=== PATIENT | male | born 1935 | race Caucasian/White ===

== ENCOUNTER 2024-02-29 12:35 | Emergency (ER) | payer MEDICARE, OTHER, SELFPAY ==
[2024-02-29 12:44] VITALS: BMI 25.7
[2024-02-29 12:45] VITALS: BP 129/80
[2024-02-29 12:46] VITALS: BP 129/80
[2024-02-29 12:58] LABS: % Basophils 0.6 % (0-2); % Eosinophils 4.3 % (0-6); % Immature Granulocytes 0.3 % (0-0.5); % Lymphocytes 15.1 % (20.5-51.1); % Monocytes 9.5 % (1.7-9.3); % Neutrophils 70.2 % (42.2-75.2); Absolute Basophils 0.1 10^3/uL (0-0.2); Absolute Eosinophils 0.4 10^3/uL (0-0.7); Absolute Lymphocytes 1.5 10^3/uL (1.2-3.4); Absolute Monocytes 0.9 10^3/uL (0.1-0.6); Absolute Neutrophils 6.8 10^3/uL (1.4-6.5); Hematocrit 40.6 % (39.0-52.0); Mean Corp Hgb Conc. 34.5 g/dL (33.0-37.0); Mean Corpuscular Hgb 32.6 pg (27.0-31.0); Mean Corpuscular Volume 94.6 fL (80.0-94.0); Mean Platelet Volume 9.6 fL (7.4-10.4); Nucleated Red Blood Cells % 0 % (-); Platelet Count 142 10^3/uL (130-400); Red Blood Cell Count 4.29 10^6/uL (4.70-6.10); Red Cell Dist. Width 13.5 % (11.5-14.5); White Blood Cell Count 9.8 10^3/uL (4.8-10.8)
[2024-02-29 13:00] VITALS: BP 120/74
[2024-02-29 13:07] LABS: ALT (SGPT) 21 U/L (0-50); AST (SGOT) 28 U/L (17-59); Albumin 3.8 g/dl (3.5-5.0); Alkaline Phosphatase 66 U/L (38-126); Blood Urea Nitrogen 18 mg/dl (9-20); Calcium 8.5 mg/dl (8.4-10.2); Carbon Dioxide 24 mmol/L (22-30); Chloride 106 mmol/L (98-107); Estimated Creatinine Clearance 67 ml/min; Glucose 131 mg/dl (70-99); Potassium 3.8 mmol/L (3.5-5.1); Sodium 138 mmol/L (135-145); Total Protein 6.5 g/dl (6.3-8.2); eGFR > 60.00
[2024-02-29 13:18] LABS: Troponin I < 0.012 ng/ml
--- NOTE | 2024-02-29 13:53 | ED.GENMED ---
History of Present Illness
General
Chief Complaint: Fainting/Passed Out
Time Seen by Provider: 02/29/24 13:34
History of Present Illness
History of Present Illness:
89-year-old male presents for evaluation after syncopal episode he sustained today. He had been n.p.o. all day for a carpal tunnel surgery that was done late this morning. He had a long drive in a car that did not have air conditioning on the way
home. He was in the car for like 40 minutes. Upon pulling into the driveway his states that he slumped over and passed out. He wet his pants during this episode. He woke up quickly and started talking. He was sweaty during this episode.
No preceding chest pain. No shortness of breath. He thinks it was due to being n.p.o. and having no air conditioning in the heat. He currently feels better after IV fluids. NO Complaints to offer currently
Phy Exam
Physical Exam
Physical Exam:
Physical Exam
General: no apparent distress, not acutely ill
Neck: supple. no meningeal signs. normal psoterior pharynx
Heart: s1/s2 regular rate and rhythm, no murmur. equal radial pulses.
Lungs: no acute respiratory distress. clear bilaterally
Abdomen: normal bowel sounds. not tender. no CVAT
Neuro: alert and oriented. no focal neurological deficits
Skin: no rash
Psychiatric: well kept. interactive and cooperative
Extremities: no edema. no calf tenderness. negative homans. good distal pulses
Course
Orders/Labs/Results
Orders:
Orders
02/29/24 12:43
Electrocardiogram (*1) Urgent
Reason for Study: Syncope
EKG- Treatment ONCE
02/29/24 12:46
Complete Blood Count/With Diff Urgent
Comprehensive Metabolic Panel Urgent
Troponin I Urgent
Abnormal Lab Results
02/29/24
12:46
RBC 4.29 L 10^6/uL
(4.70-6.10)
MCV 94.6 H fL
(80.0-94.0)
MCH 32.6 H pg
(27.0-31.0)
Absolute Neuts (auto) 6.8 H 10^3/uL
(1.4-6.5)
Absolute Monos (auto) 0.9 H 10^3/uL
(0.1-0.6)
Lymphocytes % 15.1 L %
(20.5-51.1)
Monocytes % 9.5 H %
(1.7-9.3)
Glucose 131 H mg/dl
(70-99)
02/29/24 12:46
02/29/24 12:46
Vital Signs
Initial and Last Documented VS:
Initial Vital Signs
Pulse Resp
68 15
02/29/24 12:38 02/29/24 12:38
Last Documented Vital Signs
Temp Pulse Resp BP Pulse Ox
99.3 F 66 15 137/68 96
02/29/24 12:40 02/29/24 14:15 02/29/24 14:15 02/29/24 14:01 02/29/24 14:15
MDM/Problems Addressed
Differential Diagnosis Includes:
Syncope. Question vasovagal versus hypoglycemia versus arrhythmia versus electrolyte abnormality
Patient feeling better after IV hydration. Will feed the patient. EKG shows sinus rhythm. Labs reviewed without significant finding.
Patient has no chest pain currently no shortness of breath. Do not suspect ACS or PE
*Critical Care Note
Total Time (30-74mins, 75-104mins- exclusive of procedures): Not Applicable
Update Note
Update Note:
Patient ate lunch. He feels much better. Patient ambulated here and feels okay. Suspect vasovagal episode from a combination of n.p.o. status hot car and recent surgery. Do not suspect arrhythmia stable for discharge
ED Attending Note
-
Portions of this chart may have been created with voice recognition software.� Occasional wrong word or��sound alike� substitutions may have occurred due to the inherent limitations of voice recognition software.
Discharge Plan
Departure
Patient Disposition: Home (Routine Discharge)
Date of Disposition: 02/29/24
Time of Disposition: 14:27
Patient with high blood pressure during this ER visit?: No
Discharge Problem:
Syncope
Instructions: Syncope (Fainting) (DC)
Referrals:
Krissy Mac, [Family Provider] -
Activity Restrictions/Additional Instructions:
Stay hydrated. Return here for worsening symptoms otherwise follow-up with your doctor
Interventions
Interventions:
*Risk Screen - Suicide Last Done: 02/29/24 12:44
*General Assessment Last Done: 02/29/24 12:44
*Neglect/Abuse Screening Last Done: 02/29/24 12:44
ED- Fall Risk Assessment Last Done: 02/29/24 12:54
*ED COVID-19 Vaccine History Last Done: 02/29/24 12:44
ED- Cardiac Assessment Last Done: 02/29/24 12:54
ED- Neurological Assessment Last Done: 02/29/24 12:54
Discharge Date and Time
Print Language: SERBIAN
[2024-02-29 14:01] VITALS: BP 137/68
== END 2024-02-29 14:41 | disposition home or self-care (01) ==
LOC: EMR 12:35
PROVIDERS: Emergency Medicine; EMERGENCY PHYSICIAN Emergency Medicine; FAMILY PHYSICIAN Family Medicine
DX: R55 Syncope and collapse (principal)
CPT/HCPCS: 99283; 80053; 84484; 85025; 93005